=== PATIENT | male | born 1945 | race Caucasian/White ===

== ENCOUNTER → 2016-04-22 | Outpatient (CLI) | payer MEDICARE, OTHER ==
--- NOTE | 2016-04-22 11:14 | CARDIOVASCULAR REPORT ---
"Cerebrovascular Exam Indications: Follow-up carotid 433.10. IMPRESSIONS 1. 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 No change from the study of 03-Jun-2015. 2. Study suggests 20-49% stenosis. No change from the study of 03-Jun-2015. 3. 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 History: A bruit of the left carotid artery. A bruit of the right carotid artery. Coronary artery disease. Risk factors: Hypertension. Hyperlipidemia. Carotid duplex study. Complete study and Doppler flow study including spectral analysis, color and harris scale imaging. Height: Height: 182.9cm. Height: 72in. Weight: Weight: 104.3kg. Weight: 229.5lb. Body mass index: BMI: 31.2kg/m^2. Body surface area: BSA: 2.33m^2. Patient status: Outpatient. Tables: Arterial flow: + +--------+--------+ |Location |V sys |V ed | + +--------+--------+ |Right CCA - proximal|84.9cm/s|17.3cm/s| + +--------+--------+ |Right CCA - distal |85.6cm/s|18.9cm/s| + +--------+--------+ |Right ECA |135cm/s |--------| + +--------+--------+ |Right ICA - proximal|62.9cm/s|18.9cm/s| + +--------+--------+ |Left CCA - proximal |108cm/s |26.7cm/s| + +--------+--------+ |Left CCA - distal |128cm/s |32.2cm/s| + +--------+--------+ |Left ECA |116cm/s |--------| + +--------+--------+ |Left ICA - proximal |130cm/s |33cm/s | + +--------+--------+ |Left ICA - mid |94.3cm/s|16.5cm/s| + +--------+--------+ |Left vertebral |70.7cm/s|--------| + +--------+--------+ Velocity ratios: + + + + + + | |Right, V sys|Right, V ed|Left, V sys|Left, V ed| + + + + + + |Max ICA/dist CCA|0.73 |1 |1.02 |1.02 | + + + + + + (Report amended ) Electronically signed by: Kedar Armijo [id number]"
== END ==
LOC: RT 09:44
DX: I25.10 Atherosclerotic heart disease of native coronary artery without angina pectoris (principal); R94.31 Abnormal electrocardiogram [ECG] [EKG]; R09.89 Other specified symptoms and signs involving the circulatory and respiratory systems